=== PATIENT | female | born 1940 | race Caucasian/White ===

== ENCOUNTER → 2019-08-23 14:01 | Outpatient (BNVA) | payer MEDICARE, SELFPAY | PROVIDERS: Family Provider Nurse Practitioner Family; PCP Family Medicine; Visit Provider Obstetrics & Gynecology | DX: N39.41 Urge incontinence (principal) | CPT/HCPCS: 87086 ==

== ENCOUNTER → 2020-05-01 14:29 | Outpatient (BNVA) | payer MEDICARE, SELFPAY | PROVIDERS: Family Provider Nurse Practitioner Family; PCP Family Medicine; Referring Provider Internal Medicine Cardiovascular Disease; Visit Provider Internal Medicine | DX: E11.40 Type 2 diabetes mellitus with diabetic neuropathy, unspecified (principal); E11.65 Type 2 diabetes mellitus with hyperglycemia; E66.9 Obesity, unspecified; E78.5 Hyperlipidemia, unspecified; I10 Essential (primary) hypertension; N39.41 Urge incontinence; Z91.89 Other specified personal risk factors, not elsewhere classified | CPT/HCPCS: 99205 ==

== ENCOUNTER 2021-06-04 15:00 | Outpatient (CLI) | payer MEDICARE, SELFPAY ==
--- NOTE | 2021-06-04 15:09 | XR_ITS ---
WS: [id number] Exam: XR lumbar spine 2-3V* [id number] Date/Time of Exam: 06/04/2021 3:30 PM Reason For Exam: SACROILIAC PAIN There appears to be an old compression fracture of the upper endplate of the L1 with about 20% loss o f vertebral height. Mild posterior displacement. There is mild spondylosis of L1 and L2. Facet DJD at all levels. Mild dextroscoliosis. Osteopenia. Mild degenerative anterolisthesis of L4 on L5. XR/XR lumbar spine 2-3V* [id number] IMPRESSION: 1. Old compression deformity of the L1 with about 20% loss of vertebral height and mild posterior displacement. 2. Degenerative changes and osteopenia.
--- NOTE | 2021-06-04 15:09 | XR_ITS ---
WS: [id number] Exam: XR hip LT 2-3V wo/w pel* [id number] Date/Time of Exam: 06/04/2021 3:30 PM Reason For Exam: HIP PAIN, LEFT No fracture or dislocation. Moderate degenerative change of the joint compartment. Osteophyte formati on along the medial aspect of the femoral head. Normal soft tissues. XR/XR hip LT 2-3V wo/w pel* [id number] IMPRESSION: 1. Moderate DJD. No fracture or dislocation.
--- NOTE | 2021-06-04 15:09 | XR_ITS ---
WS: [id number] Exam: XR thoracic spine 2V [id number] Date/Time of Exam: 06/04/2021 3:30 PM Reason For Exam: THORACIC SPINE PAIN No acute fracture or dislocation. There is spondylosis with anterior bridging osteophytes. Disc calci fications at multiple levels. Paraspinal soft tissues are unremarkable. Increased kyphosis. XR/XR thoracic spine 2V [id number] IMPRESSION: 1. Degenerative changes with increased kyphosis. 2. No acute fracture or malalignment.
== END 2021-06-04 15:01 | disposition home or self-care (01) ==
PROVIDERS: PCP Family Medicine; Visit Provider Nurse Practitioner Family
DX: M54.6 Pain in thoracic spine (principal); M53.3 Sacrococcygeal disorders, not elsewhere classified; M85.88 Other specified disorders of bone density and structure, other site; M16.12 Unilateral primary osteoarthritis, left hip
CPT/HCPCS: 72070; 72100; 73502

== ENCOUNTER → 2022-03-07 10:53 | Outpatient (BNVA) | payer MEDICARE, SELFPAY | PROVIDERS: PCP Family Medicine; Visit Provider Family Medicine | DX: E11.69 Type 2 diabetes mellitus with other specified complication (principal); E78.5 Hyperlipidemia, unspecified; E11.40 Type 2 diabetes mellitus with diabetic neuropathy, unspecified; E11.65 Type 2 diabetes mellitus with hyperglycemia; I10 Essential (primary) hypertension | CPT/HCPCS: 80053; 80061; 83036; 85025 ==

== ENCOUNTER → 2022-04-09 12:32 | Outpatient (BNVA) | payer MEDICARE, SELFPAY | PROVIDERS: PCP Family Medicine; Visit Provider Internal Medicine | DX: I10 Essential (primary) hypertension (principal); R06.02 Shortness of breath | CPT/HCPCS: 99213; 99214 ==

== ENCOUNTER 2022-06-09 08:37 | Emergency (ER) | payer MEDICARE, SELFPAY ==
[2022-06-09 08:42] VITALS: BP 136/71; PULSE 101; RESP 18; TEMP 36.6; O2SAT 93
--- NOTE | 2022-06-09 08:54 | XRR_ITS ---
PROCEDURE INFORMATION: Exam: XR Chest Exam date and time: 06/09/2022 9:02 AM Age: 81 years old Clinical indication: Injury or trauma; Fall; Blunt trauma (contusions or hematomas) TECHNIQUE: Imaging protocol: Radiologic exam of the chest. Views: 2 views. COMPARISON: CT chest w con* [id number] 03/24/2019 9:18 AM FINDINGS: Lungs: Unremarkable. No consolidation. Pleural spaces: Unremarkable. No pleural effusion. No pneumothorax. Heart/Mediastinum: Unremarkable. No cardiomegaly. Bones/joints: Dorsal spine osteopenia and osteoarthritis XR/XR chest 2V* [id number] IMPRESSION: No acute findings. Dorsal spine osteopenia and osteoarthritis
--- NOTE | 2022-06-09 08:54 | XRR_ITS ---
PROCEDURE INFORMATION: Exam: XR Right Hip Exam date and time: 06/09/2022 9:02 AM Age: 81 years old Clinical indication: Fall with blunt right hip trauma. TECHNIQUE: Imaging protocol: Radiologic exam of the Right hip. Views: 1 view hip with pelvis when performed. COMPARISON: CT abdomen pelvis w con* [id number] 02/17/2019 9:37 AM FINDINGS: Bones/joints: Mild primary osteoarthritis at the right hip. No fracture, dislocation or subluxation. No periosteal reaction or supsicious bone lesion. Soft tissues: No gross soft tissue swelling. XR/XR hip RT 2-3V wo/w pel* [id number] IMPRESSION: 1. 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 2. No acute fracture is seen.
--- NOTE | 2022-06-09 08:54 | XRR_ITS ---
PROCEDURE INFORMATION: Exam: XR Right Ribs Exam date and time: 06/09/2022 9:02 AM Age: 81 years old Clinical indication: Fall with blunt trauma to rib area. TECHNIQUE: Imaging protocol: Radiologic exam of the Right ribs. Views: 2 views. COMPARISON: CR XR ribs BI 3V* [id number] 02/17/2019 8:12 AM FINDINGS: Bones/joints: No gross rib fracture is identified. Soft tissues: The visualized right chest is grossly clear. No gross soft tissue swelling. XR/XR ribs RT 2V* [id number] IMPRESSION: No gross rib fracture is identified. Consider CT if there is continued clinical concern.
--- NOTE | 2022-06-09 08:56 | ED_ITS ---
HPI - Fall General: Chief Complaint: Fall Stated Complaint: Fall, Back, hip, and leg pain Time Seen by Provider: 06/09/22 08:48 History of Present Illness: 81-year-old female presents following a fall. Patient reports that yesterday afternoon she sat down on something that collapsed on her . She complains of pain right lower ribs, right hip/pelvis. She reports that she has a lot of pain with any movement. Pain with inspiration. She waited until today to come in because she thought it would get better. Patient denies hitting her head or any other injury. He does not have any vertebral pain. No numbness tingling. No loss of consciousness. Associated symptoms-after fall: Denies abdominal pain, chest pain or headache(s) Review of Systems Const: Denies: fever(s) or chills Eyes: Denies: change in vision or eye discharge ENMT: Denies: throat pain Card: Denies: chest pain or palpitations Resp: Reports: pain on inspiration; Denies: dyspnea GI: Denies: abdominal pain, nausea or vomiting : Denies: flank pain or difficulty voiding Musc: Reports: extremity pain and joint pain Skin/Breast: Denies: rash or erythema Neuro: Denies: headache(s) or dizziness PFSH ED PFSH: Medical History Chest pain Essential hypertension Essential tremor History of dysphagia History of esophageal dilatation Hx of hiatal hernia Hx of varicose veins Hypertension, benign Surgical History H/O dilation and curettage (~1972) Done for a miscarriage at the age of 32 History of appendectomy Open appendectomy via vertical midline incision. History of tonsillectomy and adenoidectomy (~2013) Along with removal of her uvula and nasal septal deviation repair. To treat sleep apnea. Hx of colonoscopy Family History Sister Diabetes CAD (coronary artery disease) Family/Other Breast cancer MATERNAL AUNT Stomach cancer MATERNAL UNCLE Grandfather Stomach cancer MATERNAL Social History Smoking and tobacco status: never smoked Alcohol intake: current Alcohol intake frequency: few times a week Alcohol type: wine Marital status: / Additional social history: well- balanced Physical Exam Const: GENERAL APPEARANCE: cooperative and well developed NUTRITIONAL APPEARANCE: obese HENMT: COMMON NORMALS: normocephalic, atraumatic, hearing grossly normal bilaterally and moist oral mucous membranes HEAD & SCALP: normocephalic and atraumatic Neck/C-Spine: COMMON NORMALS: full ROM, no lymphadenopathy and supple Chest: COMMONS NORMALS: normal inspection of the chest CHEST: Yes localized rib tenderness with anteroposterior compression Resp: COMMON NORMALS: normal respiratory effort, No use of accessory muscles and clear to auscultation bilaterally AUSCULTATION: clear to auscultation bilaterally Cardio: COMMON NORMALS: regular rhythm RATE: tachycardic RHYTHM: regular rhythm GI: COMMON NORMALS: Soft to palpation and non-tender PALPATION: Yes Soft to palpation Back/Pelvis: THORACIC SPINE/UPPER BACK: No thoracic spinal tenderness LUMBAR SPINE/LOWER BACK: Yes lumbar ROM normal, No lumbar spinal tenderness and Yes paraspinal muscle tenderness PELVIS: Yes no pain with anterior-posterior compression and Yes no pain with lateral compression Extremity: RIGHT LOWER EXTREMITY: Yes hip joint Right hip: Yes palpation (Mild tenderness to hip and iliac crest) Neuro: COMMON NORMALS: moves all extremities, no focal motor deficits and no sensory deficits noted Psych: COMMON NORMALS: Normal thought process present, cooperative, normal affect and speech normal SPEECH: Yes normal speech THOUGHT PROCESS: Normal thought process present Skin: COMMON NORMALS: no rashes or lesions noted and no wounds GENERAL SKIN EXAM: no rashes or lesions noted Course Vital Signs: Vital signs: Vital Signs Temperature 97.8 F 06/09/22 08:42 Pulse Rate 73 06/09/22 09:19 Respiratory Rate 18 06/09/22 08:42 Blood Pressure 137/73 06/09/22 09:19 Pulse Oximetry 99 06/09/22 09:19 Oxygen Delivery Me thod 06/09/22 09:19 MDM - Fall Medical Decision Making Patient with no fractures identified on imaging. Patient likely with rib and hip contusion. She has some improvement with Toradol. Discussed with her supportive care including ibuprofen, Tylenol, warm moist heat, topical lidocaine and topical Voltaren. Patient should follow-up with her primary care provider as needed. She is stable and discharged home Lab Data Radiology Impressions Hip/Pelvis X-Ray 06/09/22 08:54 IMPRESSION: 1. 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 2. No acute fracture is seen. Ribs X-Ray 06/09/22 08:54 IMPRESSION: No gross rib fracture is identified. Consider CT if there is continued clinical concern. Discharge Plan Discharge Patient Disposition: Home Clinical Impression: Contusion of rib on right side, Contusion of right hip region, Fall Condition: Stable Prescriptions: No Action acetaminophen 500 mg capsule 500 mg PO Q6H PRN pantoprazole [Protonix] 40 mg tablet,delayed release (DR/EC) 40 mg PO QDAY atenolol 25 mg tablet 25 mg PO QDAY Qty: 90 3RF nystatin 100,000 unit/gram powder 1 applic topical BID Qty: 60 4RF glipizide 5 mg tablet 10 mg PO BID Ozempic 0.25 mg or 0.5 mg(2 mg/1.5 mL) pen injector 0.25 mg SUBCUT .weekly Qty: 1.5 11RF (DME) diabetic shoes with molded inserts See Rx Instructions .Route .MEDSUPPLY Qty: 1 0RF Rx Instructions: As directed Discharge Orders: Discharge ED (Routine); Ordered 06/09/22 Ordered By: Lupillo Chilel Referrals: Abelino Gautam MD [Primary Care Provider] - Discharge Diet: Usual diet Discharge Activity: Increase activity as tolerated Patient Instructions: Opioid Safety, Pain Management, Rib Contusion (ED), Hip Contusion (ED) Activity Restrictions/Additional Instructions: 4% topical lidocaine with menthol cream gel or patch use as directed on package, Voltaren/diclofenac cream use as directed on package. Warm moist heat 3-4 times daily. Tylenol or ibuprofen as needed for discomfort. Follow-up with your primary care provider if symptoms have not improved over the next week Coding Level of Care Code ED Pathology Technologist for Melody Fwd Exam Comprehensive
[2022-06-09] MEDS: ketorolac 30 mg/mL INJ 10 MG IM (09:01)
[2022-06-09 09:19] VITALS: BP 137/73; PULSE 73; O2SAT 99
[2022-06-09 11:51] VITALS: PULSE 65; O2SAT 99
== END 2022-06-09 11:50 | disposition home or self-care (01) ==
PROVIDERS: Emergency Provider Student in an Organized Health Care Education/Training Program; PCP Family Medicine
DX: S20.211A Contusion of right front wall of thorax, initial encounter (principal); S70.01XA Contusion of right hip, initial encounter; Z79.84 Long term (current) use of oral hypoglycemic drugs; I10 Essential (primary) hypertension; W18.39XA Other fall on same level, initial encounter
CPT/HCPCS: 71046; 71100; 73502; 96372; 99284; J1885

== ENCOUNTER → 2022-07-04 08:44 | Outpatient (BNVA) | payer MEDICARE, SELFPAY | PROVIDERS: PCP Family Medicine; Visit Provider Family Medicine | DX: R53.1 Weakness (principal); I10 Essential (primary) hypertension; E11.40 Type 2 diabetes mellitus with diabetic neuropathy, unspecified; E11.65 Type 2 diabetes mellitus with hyperglycemia | CPT/HCPCS: 80053; 83036; 84443; 85025; 86140 ==

== ENCOUNTER → 2022-09-03 07:55 | Outpatient (BNVA) | payer MEDICARE, SELFPAY | PROVIDERS: PCP Family Medicine; Visit Provider Surgery | DX: Z98.890 Other specified postprocedural states (principal); R10.33 Periumbilical pain; R11.0 Nausea; R13.10 Dysphagia, unspecified | CPT/HCPCS: 99203 ==

== ENCOUNTER 2022-09-05 12:52 | Outpatient (CLI) | payer MEDICARE, SELFPAY ==
--- NOTE | 2022-09-05 13:45 | USCV_ITS ---
AndersCarlene Age: 81 Gender: F : 1940 Exam Date: 09/05/2022 13:34 Ordering Phys: Abelino Gautam MD Technologist: Low Hackett Exam Location: [facility] – [place] Indication: weakness/edema BP: 124 / 75 HR: 77 Rhythm: Sinus Technical Quality: Adequate MEASUREMENTS (Male / Female) Normal Values 2D ECHO LV Diastolic Diameter PLAX 3.8 cm 4.2 - 5.9 / 3.9 - 5.3 cm LV Systolic Diameter PLAX 2.7 cm IVS Diastolic Thickness 1.1 cm 0.6 - 1.0 / 0.6 - 0.9 cm IVS Systolic Thickness 1.3 cm LVPW Diastolic Thickness 1.4 cm 0.6 - 1.0 / 0.6 - 0.9 cm LVPW Systolic Thickness 1.4 cm LVOT Diameter 2.0 cm LV Ejection Fraction 2D Teich 57.6 % LV Ejection Fraction MOD 2C 58.9 % LV Ejection Fraction 2C AL 58.9 % LA Diameter 3.2 cm LA Width 3.2 cm LA Height 3.9 cm RA Width 2.5 cm RA Height 3.9 cm Aorta at Sinotubular Diameter 2.3 cm IVC Diameter 1.9 cm M-MODE Aortic Annulus Diameter 2.7 cm LA Ao Ratio MM 1.2 MV E Point Septal Separation 0.6 cm DOPPLER AV Peak Velocity 164.0 cm/s LVOT Peak Velocity 99.0 cm/s AV Area Cont Eq vti 1.7 cm squared AV Area Cont Eq pk 1.9 cm squared MV Peak Velocity 129.0 cm/s MV Area PHT 4.5 cm squared Mitral E to A Ratio 0.8 MV E' Velocity 48.5 cm/s Mitral E to MV E' Ratio 12.1 Mitral E to LV E' Lateral Ratio 9.9 Mitral E to LV E' Septal Ratio 15.4 TR Peak Velocity 336.8 cm/s TR Peak Gradient 45.4 mmHg TR Mean Velocity 278.7 cm/s TR Mean Gradient 43.1 mmHg TR Velocity Time Integral 88.2 cm Right Atrial Pressure 3.0 mmHg Pulmonary Artery Systolic Pressu 48.4 mmHg PV Peak Velocity 93.0 cm/s RV Acceleration Time 0.1 s RV Ejection Time 0.3 s RV AcT/ET 0.4 FINDINGS Left Ventricle Left ventricle is normal size. LV systolic function is normal with EF of 55 to 60%. No regional wall motion abnormalities are seen. Grade 1 diastolic dysfunction Right Ventricle Normal in size and function Right Atrium Normal in size Left Atrium Normal in size Mitral Valve Grossly normal. Mild mitral regurgitation. Aortic Valve Grossly normal. No significant stenosis or regurgitation. Tricuspid Valve Trace tricuspid regurgitation. Insufficient TR jet to calculate RVSP Pulmonic Valve Trace pulmonic regurgitation. Pericardium Normal Aorta Normal in size IVC Appears to be normal CONCLUSIONS LV systolic function is normal with EF of 55 to 60% Grade 1 diastolic dysfunction Mild mitral regurgitation Trace tricuspid regurgitation Trace pulmonic regurgitation Compared to prior echocardiogram from 2015 no significant changes are seen Feliberto Garcia MD (Electronically Signed) Final Date: 11 September 2022 12:51 S
== END 2022-09-05 12:53 | disposition home or self-care (01) ==
LOC: RAD 12:53
PROVIDERS: PCP Family Medicine; Visit Provider Family Medicine
DX: R53.1 Weakness (principal); R60.9 Edema, unspecified; I08.1 Rheumatic disorders of both mitral and tricuspid valves
CPT/HCPCS: 93306

== ENCOUNTER → 2022-09-09 14:43 | Outpatient (BNVA) | payer MEDICARE, SELFPAY | PROVIDERS: PCP Family Medicine; Visit Provider Family Medicine | DX: R60.9 Edema, unspecified (principal); R53.1 Weakness; R06.00 Dyspnea, unspecified | CPT/HCPCS: 80048; 83735; 83880 ==

== ENCOUNTER → 2022-09-12 13:31 | Outpatient (BNVA) | payer MEDICARE, SELFPAY | PROVIDERS: PCP Family Medicine; Visit Provider Family Medicine | DX: R06.00 Dyspnea, unspecified (principal); R60.9 Edema, unspecified; R53.1 Weakness | CPT/HCPCS: 80053; 82607; 85025; 86140 ==

== ENCOUNTER 2022-09-18 05:55 | Day surgery (SDC) | payer MEDICARE, SELFPAY ==
[2022-09-16 09:27] VITALS: BMI 35.4
[2022-09-18 06:19] VITALS: BP 142/82; PULSE 85; RESP 16; TEMP 36.6; O2SAT 97
--- NOTE | 2022-09-18 06:42 | P.ANESASSM_ITS ---
Pre-Anesthetic Assessment Height/Weight: Height 1.6 m Weight 90.718 kg Temp Pulse Resp BP Pulse Ox O2 Del Method 98 F 85 16 142/82 97 09/18/22 06:19 09/18/22 06:19 09/18/22 06:19 09/18/22 06:19 09/18/22 06:19 09/18/22 06:19 Operation Date: 09/18/22 07:30 Proposed Procedures p 11746 EGD w ball dial, [id number] Colon R13.10,Z12.11(Not Applicable) - DO maría Gonsales Colonoscopy(Not Applicable) - Kenneth Paris DO Familial anesthetic complications: None Was Beta Alanis taken within 24 hours: N/A Was Clonidine taken within 24 hours: N/A Last intake: Intake Last Liquid Date 09/17/22 Last Liquid Time 22:15 Last Solid Date 09/16/22 Last Solid Time 17:00 Social No alcohol and No tobacco Exam alert, oriented x 3, clear to auscultation bilaterally and regular rate & rhythm Airway Submandibular: within normal limits Cervical ROM: within normal limits Mallampati: Class II Dentition: partials Comments: Comments: Implant History/ROS No significant history except as noted and No significant complaints Pulmonary Cough, Exertional Dyspnea and Sleep Apnea (Doesn't use CPAP) CV/HEM Stable Angina and Arrythmia (Bradycardia) LV systolic function is normal with EF of 55 to 60% ?Grade 1 diastolic dysfunction ?Mild mitral regurgitation ?Trace tricuspid regurgitation ?Trace pulmonic regurgitation ?Compared to prior echocardiogram from 2015 no significant ?changes are seen None reported Hepatic None reported GI Gastroesophageal Reflux Disease (Controlled with meds) Metabolic Diabetes Mellitus (Blood sugar 206 this am) and Hyperlipidemia [facility] [place] Lower Back Pain and Osteoarthritis/DJD Neuropsych Anxiety and Depression Anesthetic Plan ASA status: 3 Anesthesia: Anesthesia Evaluation, General and MAC Risk of > 500 ml blood loss (7ml/kg in children): No Medications/Allergies Home Medications Medication Instructions Recorded Confirmed Last Taken Type acetaminophen 500 mg capsule 500 mg PO Q6H PRN Pain 08/17/19 09/18/22 09/15/22 History naproxen 500 mg tablet (Naprosyn) 500 mg PO BID PRN pain #14 tabs 06/11/22 09/18/22 Unknown Rx glimepiride 2 mg tablet 2 mg PO BID #60 tabs 08/08/22 09/16/22 09/16/22 Rx pantoprazole 40 mg tablet,delayed 40 mg PO QDAY #90 tabs 08/20/22 09/16/22 09/16/22 Rx release (Protonix) diabetic shoes with molded inserts #1 ea 09/05/22 09/16/22 09/16/22 Rx blood-glucose meter (Accu-Chek #1 ea 09/12/22 09/16/22 09/16/22 Rx Guide Glucose Meter) nystatin 100,000 unit/gram topical 1 applic topical BID PRN irritation 09/16/22 09/18/22 08/28/22 History powder Allergies Allergy/AdvReac Type Severity Reaction Status Date / Time metformin AdvReac ADR-Diarrhe Verified 09/16/22 09:21 a [facility] Anesthesia Medical History Chest pain Essential hypertension Essential tremor History of dysphagia History of esophageal dilatation Hx of hiatal hernia Hx of varicose veins Hypertension, benign Surgical History H/O dilation and curettage (~1972) Done for a miscarriage at the age of 32 History of appendectomy Open appendectomy via vertical midline incision. History of tonsillectomy and adenoidectomy (~2013) Along with removal of her uvula and nasal septal deviation repair. To treat sleep apnea. Hx of colonoscopy Family History Sister Diabetes CAD (coronary artery disease) Family/Other Breast cancer MATERNAL AUNT Stomach cancer MATERNAL UNCLE Grandfather Stomach cancer MATERNAL Social History Smoking and tobacco status: never smoked Alcohol intake: current Alcohol intake frequency: few times a week Alcohol type: wine Marital status: / Additional social history: well- balanced Data Anesthesia Cardiac Studies: Echocardiogram 09/05/22
[2022-09-18] MEDS: sodium chloride 0.9% 1,000 ML 30 ML IV (06:47)
[2022-09-18 06:53] LABS: Glucose Point of Care 206 mg/dL (70-110)
--- NOTE | 2022-09-18 08:03 | W.PM.OPSUD ---
Surgery/Procedure H&P Update DATE OF PROCEDURE: September 18, 2022 DATE H&P PERFORMED: 09/03/22 H&P UPDATE INFORMATION: I have reviewed H&P completed within last 30 days, I have examined patient prior to procedure and No changes to prior documentation PLANNED PROCEDURE: Operation Date: 09/18/22 07:30 Proposed Procedures p 45768 EGD w joy bazan, 38070 Colon R13.10,Z12.11(Not Applicable) - DO maría Gonsales Colonoscopy(Not Applicable) - Kenneth Paris DO
[2022-09-18 08:32] VITALS: BP 140/90; PULSE 87; RESP 16; TEMP 36.5; O2SAT 95
[2022-09-18 08:40] VITALS: BP 114/91; PULSE 90; RESP 16; O2SAT 94
[2022-09-18 08:50] VITALS: BP 138/60; PULSE 98; RESP 16; O2SAT 98
--- NOTE | 2022-09-18 13:04 | ANE.PACU2 ---
Inpatient post-anesthesia follow up: Airway intact: Yes Vital signs: Temperature 97.7 F Pulse Rate 98 Respiratory Rate 16 Blood Pressure 138/60 Pulse Oximetry 98 Oxygen Delivery Me thod Room Air Oxygen Flow Rate 3 Fraction of Inspir ed Oxygen Hydration adequate: Yes Nausea and vomiting: No Pain level: 2 Mental status: Baseline
== END 2022-09-18 09:30 | disposition home or self-care (01) ==
PROVIDERS: PCP Family Medicine; Visit Provider Surgery
PROC: 0DJD8ZZ Inspection of Lower Intestinal Tract, Via Natural or Artificial Opening Endoscopic (ICD-10-PCS; CPT 45378; 2022-09-18 07:30)
DX: Z12.11 Encounter for screening for malignant neoplasm of colon (principal); R13.10 Dysphagia, unspecified; K57.30 Diverticulosis of large intestine without perforation or abscess without bleeding; K22.2 Esophageal obstruction; K44.9 Diaphragmatic hernia without obstruction or gangrene; G47.30 Sleep apnea, unspecified; E11.9 Type 2 diabetes mellitus without complications; E78.5 Hyperlipidemia, unspecified; I10 Essential (primary) hypertension
CPT/HCPCS: 36416; 43239; 43249; 82962; 88305; G0121; J2704; J7030

== ENCOUNTER → 2022-09-24 17:21 | Outpatient (BNVA) | payer MEDICARE, SELFPAY | PROVIDERS: PCP Family Medicine; Visit Provider Surgery | DX: R13.10 Dysphagia, unspecified (principal) | CPT/HCPCS: 99024; 99212 ==

== ENCOUNTER 2022-10-09 06:34 | Outpatient (CLI) | payer MEDICARE, SELFPAY ==
--- NOTE | 2022-10-09 07:00 | USCV_ITS ---
Carlene Anders Age: 81 Gender: F : 1940 Exam Date: 10/09/2022 06:43 Ordering Phys: Abelino Gautam MD Technologist: NATHAN Exam Location: [facility] [place] Indication: BLE EDEMA HISTORY: Lower extremity edema. PROCEDURES: Venous duplex imaging was performed in bilateral lower extremities. The following venous structures were evaluated: common femoral vein, profunda vein, proximal portion of the greater saphenous vein, superficial femoral vein, and the popliteal vein. In addition, the posterior tibial and peroneal trunk were evaluated. Serial compression, augmentation maneuvers, and spectral Doppler flow evaluation were performed. FINDINGS: No evidence of DVT seen in any vessel visualized at this time. CONCLUSIONS No evidence of right lower extremity DVT. No evidence of left lower extremity DVT. Eddie Lozoya MD (Electronically Signed) Final Date: 09 October 2022 09:59 S
== END 2022-10-09 06:35 | disposition home or self-care (01) ==
LOC: RAD 06:37
PROVIDERS: PCP Family Medicine; Visit Provider Family Medicine
DX: R60.0 Localized edema (principal)
CPT/HCPCS: 93970

== ENCOUNTER → 2022-10-15 08:29 | Outpatient (BNVA) | payer MEDICARE, SELFPAY | PROVIDERS: PCP Family Medicine; Visit Provider Family Medicine | DX: R79.82 Elevated C-reactive protein (CRP) (principal) | CPT/HCPCS: 85651; 86140 ==

== ENCOUNTER 2022-10-23 07:43 | Outpatient (CLI) | payer MEDICARE, SELFPAY ==
--- NOTE | 2022-10-23 09:30 | FL_ITS ---
WS: [id number] FL barium swallow modifd [id number] REASON FOR EXAM: Sensation of food sticking in the throat. FLUOROSCOPY TIME: 2min [id number] # OF SPOT FILMS: 0 FINDINGS: The examination was supervised by the speech therapy department. With the patient in the upright sitting position and in the lateral projection the swallowing of mult iple consistencies of barium was monitored fluoroscopically and recorded. No aspiration was observed. Detailed analysis and report of the swallowing will be rendered by the speech therapy department. FL/FL barium swallow modifd [id number] IMPRESSION: Modified barium swallow as above.
== END 2022-10-23 07:44 | disposition home or self-care (01) ==
PROVIDERS: PCP Family Medicine; Visit Provider Surgery
DX: R13.10 Dysphagia, unspecified (principal)
CPT/HCPCS: 74230; 92611

== ENCOUNTER → 2022-10-29 16:53 | Outpatient (BNVA) | payer MEDICARE, SELFPAY | PROVIDERS: PCP Family Medicine; Visit Provider Surgery | DX: R13.10 Dysphagia, unspecified (principal) | CPT/HCPCS: 99212 ==

== ENCOUNTER → 2022-12-05 09:25 | Outpatient (BNVA) | payer MEDICARE, SELFPAY | PROVIDERS: PCP Family Medicine; Visit Provider Family Medicine | DX: R79.82 Elevated C-reactive protein (CRP) (principal); R06.00 Dyspnea, unspecified; R60.9 Edema, unspecified | CPT/HCPCS: 80048; 86140 ==

== ENCOUNTER → 2022-12-31 14:45 | Outpatient (BNVA) | payer MEDICARE, SELFPAY | PROVIDERS: PCP Family Medicine; Referring Provider Family Medicine; Visit Provider Nurse Practitioner Family | DX: L82.1 Other seborrheic keratosis (principal); L30.4 Erythema intertrigo; Z85.828 Personal history of other malignant neoplasm of skin | CPT/HCPCS: 99204 ==

== ENCOUNTER → 2023-02-03 08:56 | Outpatient (BNVA) | payer MEDICARE, SELFPAY | PROVIDERS: PCP Family Medicine; Visit Provider Nurse Practitioner Family | DX: L82.1 Other seborrheic keratosis (principal); L30.4 Erythema intertrigo; D04.5 Carcinoma in situ of skin of trunk; Z85.828 Personal history of other malignant neoplasm of skin | CPT/HCPCS: 11102; 99213 ==